=== PATIENT | female | born 2000 | race Caucasian/White ===

== ENCOUNTER 2021-06-03 12:21 | Outpatient (CLI) | payer BC ==
[2021-06-03] MEDS ORDERED: LIDOCAINE 1%, 20 ML MDV 20 ML ONE (13:29)
== END 2021-06-03 21:05 | disposition home or self-care (01) ==
LOC: SRD 12:21
PROVIDERS: ATTEND Specialist
DX: Z30.433 Encounter for removal and reinsertion of intrauterine contraceptive device (principal); N92.6 Irregular menstruation, unspecified; N94.6 Dysmenorrhea, unspecified; Q51.3 Bicornate uterus
CPT/HCPCS: 58300; 58301; 58340; 74740; C1751; J2001; J7296; Q9967

== ENCOUNTER 2023-01-26 07:00 | Day surgery (SDC) | payer BC ==
[2023-01-24 09:42] LABS: BASOPHILS % (AUTO) 0.4 % (0.0-2.0); EOSINOPHILS % (AUTO) 0.6 % (0.0-4.0); HEMATOCRIT 35.4 % (36-48); HEMOGLOBIN 12.2 g/dL (12.0-16.0); LYMPHOCYTES # (AUTO) 1.9 K/uL (1.0-5.5); LYMPHOCYTES % (AUTO) 26.5 % (20.5-51.5); MEAN CORPUSCULAR HEMOGLOBIN 30 pg (27-31); MEAN CORPUSCULAR HGB CONC 35 % (32-36); MEAN CORPUSCULAR VOLUME 88 fL (79.0-98.0); MONOCYTES # (AUTO) 0.3 K/uL (0.0-1.0); MONOCYTES % (AUTO) 4.5 % (1.7-9.3); PLATELET COUNT (AUTO) 196 K/uL (130-430); RED BLOOD CELL COUNT(AUTO) 4.01 MIL/uL (4.2-6.2); RED CELL DISTRIBUTION WIDTH 13.7 % (9.0-15.0); WHITE BLOOD COUNT (AUTO) 7.3 K/uL (4.8-10.8)
[2023-01-24 09:43] LABS: BILIRUBIN,URINE NEGATIVE (NEGATIVE); BLOOD, URINE NEGATIVE (NEGATIVE); CLARITY/URINE CLEAR (CLEAR); COLOR,URINE YELLOW (YELLOW); GLUCOSE,URINE NEGATIVE (NEGATIVE); KETONES,URINE NEGATIVE (NEGATIVE); LEUKOCYTE ESTERASE ,URINE NEGATIVE (NEGATIVE); NITRITE, URINE NEGATIVE (NEGATIVE); PROTEIN URINE NEGATIVE (NEGATIVE); UROBILINOGEN,URINE 0.2 (0.2-1.0)
[~2023-01-26] VITALS: Ht 170.2 cm; Wt 54.4 kg
[2023-01-26] MEDS ORDERED: BUPIVACAINE /DEX PF 0.75% SPINAL 2 ML AMP INJ ONE (08:37)
[2023-01-26] MEDS ORDERED: ceFAZolin SODIUM 1 GM VIAL ONE (08:37)
[2023-01-26] MEDS ORDERED: NS IRRIG SOLN 1000 ML IR ONE (08:37)
[2023-01-26] MEDS ORDERED: BUPIVACAINE /PF 0.25% 30 ML VIAL INJ ONE (08:37)
[2023-01-26] MEDS ORDERED: WATER FOR IRRIGATION,STERILE 1,000 ML IRRIG.SOLN IR ONE (08:37)
[2023-01-26] MEDS ORDERED: LR 1,000 ML IV.SOLN IV ONE (08:37)
[2023-01-26] MEDS ORDERED: ePHEDrine sulfate 50 MG/ML VIAL ONE (08:37)
[2023-01-26] MEDS ORDERED: MORPHINE SULFATE 10 MG/ML VIAL IM PRN (09:00)
[2023-01-26] MEDS ORDERED: TERBUTALINE SULFATE 1 MG/ML VIAL SUBCUT ONE (09:00)
[2023-01-26] MEDS ORDERED: D5LR 1,000 ML IV SCH (09:00)
[2023-01-26] MEDS ORDERED: ONDANSETRON HCL 4 MG/2 ML VIAL IVP PRN (09:15)
[2023-01-26] MEDS ORDERED: MEPERIDINE HCL/PF 25 MG/ML DISP.SYRIN IVP PRN (09:15)
[2023-01-26] MEDS ORDERED: LR 1,000 ML IV SCH (09:15)
[2023-01-26 09:32] VITALS: BP_SYST 97
[2023-01-26] MEDS ORDERED: ceFAZolin SODIUM 1 GM in D5W 100 ML IV SCH (14:00)
== END 2023-01-26 18:00 | disposition home or self-care (01) ==
LOC: SDS 07:00 → SMU 07:01 → SPU 10:52 → SDS 18:00
PROVIDERS: ATTEND Specialist
DX: O34.32 Maternal care for cervical incompetence, second trimester (principal); Z3A.18 18 weeks gestation of pregnancy
CPT/HCPCS: 85025; 86886; 86900; 86901; 87081; 36415; 81003; 59320; 87070; J3490 ×2; J0690; J3105; J7060; J7120